=== PATIENT | female | born 2000 | race Caucasian/White ===

== ENCOUNTER → 2022-04-04 | Outpatient (REF) | payer BC, OTHER ==
[~2022-04-04] MED LIST: AMOX875T PO; CLIN300C2 PO; MOTR200T44 PO; TYLE325T5 PO; ZITHTAB PO
[2022-04-04 19:19] LABS: RSV AMPLIFICATION NEGATIVE (NEGATIVE)
== END ==
LOC: M WUC 17:14
PROVIDERS: ATTEND Physician Assistant
DX: R50.9 Fever, unspecified (principal); J02.9 Acute pharyngitis, unspecified

== ENCOUNTER → 2023-11-29 | Outpatient (CLI) | payer BC | LOC: M PLAIMG 12:45 | PROVIDERS: ATTEND Registered Nurse | DX: G43.909 Migraine, unspecified, not intractable, without status migrainosus (principal) ==

== ENCOUNTER → 2025-01-29 | Outpatient (REF) | payer BC | LOC: M LAB REF 11:58 | PROVIDERS: ATTEND Student in an Organized Health Care Education/Training Program | DX: R30.0 Dysuria (principal) ==

== ENCOUNTER → 2025-02-22 | Outpatient (CLI) | payer BC | LOC: M PLARAD 07:56 | PROVIDERS: ATTEND Nurse Practitioner Family | DX: R93.2 Abnormal findings on diagnostic imaging of liver and biliary tract (principal) ==

== ENCOUNTER → 2025-05-11 | Outpatient (REF) | payer OTHER ==
[2025-05-15 14:15] LABS: HPV APTIMA Not Detected (Not Detected)
== END ==
LOC: M PLALAB 11:35
PROVIDERS: ATTEND Obstetrics & Gynecology
DX: Z12.4 Encounter for screening for malignant neoplasm of cervix (principal)
CPT/HCPCS: 87624; G0123